=== PATIENT | female | born 1960 ===

== ENCOUNTER 2017-12-25 07:38 | Day surgery (SDC) | payer MEDICARE ==
[2017-12-20 14:53] VITALS: BMI 21.7
[2017-12-25] MEDS ORDERED: Iohexol 240 (50 ml) ONE (10:33)
[2017-12-25] MEDS ORDERED: Propofol 10 mg/ml Inj (20 ML) ONE ×3 (10:49→11:34)
[2017-12-25] MEDS ORDERED: Midazolam 2 MG/2 ML VIAL ONE (11:33)
[2017-12-25 12:23] VITALS: O2SAT 99
[2017-12-25] MEDS ORDERED: Sodium Chloride 0.9% 1,000 ML IV SCH (12:30)
[2017-12-25 13:30] VITALS: BP 112/67; PULSE 62; RESP 18; TEMP 97.5
--- NOTE | 2017-12-25 13:43 | RAD ---
Date of service: 12/25/2017 PROCEDURE: Fluoroscopy up to 1 hr HISTORY: FLUOROSCOPIC GUIDED ESPOHAGEAL DILATATION COMPARISON: TECHNIQUE: 33.6 sec of fluoro time. Cumulative dose 2.54 mGy. Four images submitted FINDINGS: A wire is visualized in the distal esophagus and stomach IMPRESSION: As above
== END 2017-12-25 14:20 | disposition home or self-care (01) ==
LOC: ENDO 07:38
PROVIDERS: ATTEND Internal Medicine Gastroenterology
DX: D13.0 Benign neoplasm of esophagus (principal); K22.2 Esophageal obstruction; K31.7 Polyp of stomach and duodenum; K44.9 Diaphragmatic hernia without obstruction or gangrene
CPT/HCPCS: 43239; 43249; 88305; 88312; 88342; C1726; J2250; J2704; J3010; J7030; J7040; Q9966